=== PATIENT | female | born 1950 | race Caucasian/White ===

== ENCOUNTER → 2024-01-16 11:28 | Outpatient (REF) | payer MEDICARE, OTHER, SELFPAY | LOC: HWRAD 11:28 | PROVIDERS: ATTENDING PHYSICIAN Internal Medicine; FAMILY PHYSICIAN Internal Medicine | DX: M81.0 Age-related osteoporosis without current pathological fracture (principal) | CPT/HCPCS: 77080 ==

== ENCOUNTER 2024-03-31 06:42 | Outpatient (RCR) | payer MEDICARE, OTHER, SELFPAY | END 2024-03-31 23:59 | disposition home or self-care (01) | LOC: RPT 06:42 | PROVIDERS: ATTENDING PHYSICIAN Internal Medicine | DX: C50.919 Malignant neoplasm of unspecified site of unspecified female breast (principal); C79.9 Secondary malignant neoplasm of unspecified site; Z98.890 Other specified postprocedural states; Z73.6 Limitation of activities due to disability; L90.5 Scar conditions and fibrosis of skin; R53.0 Neoplastic (malignant) related fatigue; R26.81 Unsteadiness on feet; R29.3 Abnormal posture | CPT/HCPCS: 97162; 97530 ==

== ENCOUNTER 2024-05-03 15:58 | Outpatient (RCR) | payer MEDICARE, OTHER, SELFPAY | END 2024-05-03 23:59 | disposition home or self-care (01) | LOC: RPT 15:58 | PROVIDERS: ATTENDING PHYSICIAN Internal Medicine | DX: C50.912 Malignant neoplasm of unspecified site of left female breast (principal); Z98.890 Other specified postprocedural states; Z73.6 Limitation of activities due to disability; L90.5 Scar conditions and fibrosis of skin; R53.0 Neoplastic (malignant) related fatigue; R26.81 Unsteadiness on feet; R29.3 Abnormal posture | CPT/HCPCS: 97110; 97140; 97164; 97530 ==

== ENCOUNTER 2024-06-03 12:59 | Outpatient (RCR) | payer MEDICARE, OTHER, SELFPAY | END 2024-06-03 23:59 | disposition home or self-care (01) | LOC: RPT 12:59 | PROVIDERS: ATTENDING PHYSICIAN Internal Medicine | DX: I89.0 Lymphedema, not elsewhere classified (principal); C50.919 Malignant neoplasm of unspecified site of unspecified female breast; Z98.890 Other specified postprocedural states; Z73.6 Limitation of activities due to disability | CPT/HCPCS: 97110; 97112; 97530 ==

== ENCOUNTER 2024-07-01 13:02 | Outpatient (RCR) | payer MEDICARE, OTHER, SELFPAY | END 2024-07-01 23:59 | disposition home or self-care (01) | LOC: RPT 13:02 | PROVIDERS: ATTENDING PHYSICIAN Internal Medicine | DX: C79.9 Secondary malignant neoplasm of unspecified site (principal); C50.919 Malignant neoplasm of unspecified site of unspecified female breast; L90.5 Scar conditions and fibrosis of skin; R53.0 Neoplastic (malignant) related fatigue; R26.81 Unsteadiness on feet; R29.3 Abnormal posture; Z98.890 Other specified postprocedural states; Z91.89 Other specified personal risk factors, not elsewhere classified; Z73.6 Limitation of activities due to disability | CPT/HCPCS: 97110; 97112; 97530 ==

== ENCOUNTER 2024-08-05 13:08 | Outpatient (RCR) | payer MEDICARE, OTHER, SELFPAY | END 2024-08-05 23:59 | disposition home or self-care (01) | LOC: RPT 13:08 | PROVIDERS: ATTENDING PHYSICIAN Internal Medicine | DX: R53.0 Neoplastic (malignant) related fatigue (principal); R26.81 Unsteadiness on feet; L90.5 Scar conditions and fibrosis of skin; R29.3 Abnormal posture; Z73.6 Limitation of activities due to disability; Z91.89 Other specified personal risk factors, not elsewhere classified; I97.2 Postmastectomy lymphedema syndrome; C50.919 Malignant neoplasm of unspecified site of unspecified female breast | CPT/HCPCS: 97110; 97112; 97140; 97530 ==

== ENCOUNTER 2024-08-27 14:26 | Outpatient (RCR) | payer MEDICARE, OTHER, SELFPAY | END 2024-08-27 23:59 | disposition home or self-care (01) | LOC: RPT 14:26 | PROVIDERS: ATTENDING PHYSICIAN Internal Medicine | DX: C50.919 Malignant neoplasm of unspecified site of unspecified female breast (principal); Z73.6 Limitation of activities due to disability; C79.9 Secondary malignant neoplasm of unspecified site; L90.5 Scar conditions and fibrosis of skin; R53.0 Neoplastic (malignant) related fatigue; R26.81 Unsteadiness on feet; R29.3 Abnormal posture; N81.0 Urethrocele; Z91.89 Other specified personal risk factors, not elsewhere classified; M81.0 Age-related osteoporosis without current pathological fracture; Z98.890 Other specified postprocedural states | CPT/HCPCS: 97110; 97140 ==

== ENCOUNTER 2024-09-23 13:02 | Outpatient (RCR) | payer MEDICARE, OTHER, SELFPAY | END 2024-09-23 23:59 | disposition home or self-care (01) | LOC: RPT 13:02 | PROVIDERS: ATTENDING PHYSICIAN Internal Medicine | DX: C50.919 Malignant neoplasm of unspecified site of unspecified female breast (principal); Z73.6 Limitation of activities due to disability; L90.5 Scar conditions and fibrosis of skin; R53.0 Neoplastic (malignant) related fatigue; R26.81 Unsteadiness on feet; Z91.89 Other specified personal risk factors, not elsewhere classified; R29.3 Abnormal posture; N81.0 Urethrocele; C79.9 Secondary malignant neoplasm of unspecified site; Z98.890 Other specified postprocedural states; M81.0 Age-related osteoporosis without current pathological fracture | CPT/HCPCS: 97110; 97112; 97140; 97530 ==

== ENCOUNTER 2024-10-14 15:32 | Outpatient (RCR) | payer MEDICARE, OTHER, SELFPAY | END 2024-10-14 23:59 | disposition home or self-care (01) | LOC: RPT 15:32 | PROVIDERS: ATTENDING PHYSICIAN Internal Medicine | DX: C50.919 Malignant neoplasm of unspecified site of unspecified female breast (principal); Z73.6 Limitation of activities due to disability; L90.5 Scar conditions and fibrosis of skin; R26.81 Unsteadiness on feet; I89.0 Lymphedema, not elsewhere classified; R29.3 Abnormal posture; Z91.89 Other specified personal risk factors, not elsewhere classified; R53.0 Neoplastic (malignant) related fatigue; N81.0 Urethrocele; C79.9 Secondary malignant neoplasm of unspecified site; Z98.890 Other specified postprocedural states; M81.0 Age-related osteoporosis without current pathological fracture | CPT/HCPCS: 97110; 97140; 97530 ==

== ENCOUNTER → 2024-10-20 10:56 | Outpatient (REF) | payer MEDICARE, OTHER, SELFPAY | LOC: HWRAD 10:56 | PROVIDERS: ATTENDING PHYSICIAN Internal Medicine | DX: R06.02 Shortness of breath (principal) | CPT/HCPCS: 71046 ==

== ENCOUNTER 2024-11-25 15:05 | Outpatient (RCR) | payer MEDICARE, OTHER, SELFPAY | END 2024-11-25 23:59 | disposition home or self-care (01) | LOC: RPT 15:05 | PROVIDERS: ATTENDING PHYSICIAN Internal Medicine | DX: C50.919 Malignant neoplasm of unspecified site of unspecified female breast (principal); Z73.6 Limitation of activities due to disability; L90.5 Scar conditions and fibrosis of skin; C79.9 Secondary malignant neoplasm of unspecified site; I89.0 Lymphedema, not elsewhere classified; Z91.89 Other specified personal risk factors, not elsewhere classified; R53.0 Neoplastic (malignant) related fatigue; R26.81 Unsteadiness on feet; R29.3 Abnormal posture; Z98.890 Other specified postprocedural states; N81.0 Urethrocele; M81.0 Age-related osteoporosis without current pathological fracture | CPT/HCPCS: 97110; 97112; 97164; 97530 ==

== ENCOUNTER → 2024-12-02 12:47 | Outpatient (REF) | payer MEDICARE, OTHER, SELFPAY | LOC: RCS 12:47 | PROVIDERS: ATTENDING PHYSICIAN Internal Medicine Cardiovascular Disease; FAMILY PHYSICIAN Internal Medicine | DX: R06.09 Other forms of dyspnea (principal); Z85.3 Personal history of malignant neoplasm of breast; Z92.3 Personal history of irradiation | CPT/HCPCS: 93306; 93356 ==

== ENCOUNTER 2024-12-31 15:04 | Outpatient (RCR) | payer MEDICARE, OTHER, SELFPAY | END 2024-12-31 23:59 | disposition home or self-care (01) | LOC: RPT 15:04 | PROVIDERS: ATTENDING PHYSICIAN Nurse Practitioner; FAMILY PHYSICIAN Internal Medicine | DX: D05.11 Intraductal carcinoma in situ of right breast (principal); C50.919 Malignant neoplasm of unspecified site of unspecified female breast (principal); Z73.6 Limitation of activities due to disability; C50.912 Malignant neoplasm of unspecified site of left female breast; L90.5 Scar conditions and fibrosis of skin; C79.9 Secondary malignant neoplasm of unspecified site; I89.0 Lymphedema, not elsewhere classified; Z91.89 Other specified personal risk factors, not elsewhere classified; R53.0 Neoplastic (malignant) related fatigue; R29.3 Abnormal posture; R26.81 Unsteadiness on feet; N81.0 Urethrocele; M81.0 Age-related osteoporosis without current pathological fracture; Z98.890 Other specified postprocedural states | CPT/HCPCS: 97110; 97112; 97530 ==

== ENCOUNTER 2025-01-28 14:00 | Outpatient (RCR) | payer MEDICARE, OTHER, SELFPAY | END 2025-01-28 23:59 | disposition home or self-care (01) | LOC: RPT 14:00 | PROVIDERS: ATTENDING PHYSICIAN Nurse Practitioner; FAMILY PHYSICIAN Internal Medicine | DX: C50.919 Malignant neoplasm of unspecified site of unspecified female breast (principal); L90.5 Scar conditions and fibrosis of skin; C79.9 Secondary malignant neoplasm of unspecified site; I89.0 Lymphedema, not elsewhere classified; Z91.89 Other specified personal risk factors, not elsewhere classified; R53.0 Neoplastic (malignant) related fatigue; R39.15 Urgency of urination; R35.0 Frequency of micturition; Z73.6 Limitation of activities due to disability; R26.81 Unsteadiness on feet; M62.89 Other specified disorders of muscle; R29.3 Abnormal posture; N81.0 Urethrocele; M81.0 Age-related osteoporosis without current pathological fracture; Z98.890 Other specified postprocedural states; B02.9 Zoster without complications | CPT/HCPCS: 97110; 97112; 97140; 97164; 97530 ==

== ENCOUNTER 2025-03-04 15:04 | Outpatient (RCR) | payer MEDICARE, OTHER, SELFPAY | END 2025-03-04 23:59 | disposition home or self-care (01) | LOC: RPT 15:04 | PROVIDERS: ATTENDING PHYSICIAN Nurse Practitioner; FAMILY PHYSICIAN Internal Medicine | DX: C50.919 Malignant neoplasm of unspecified site of unspecified female breast (principal); L90.5 Scar conditions and fibrosis of skin; C79.9 Secondary malignant neoplasm of unspecified site; I89.0 Lymphedema, not elsewhere classified; Z91.89 Other specified personal risk factors, not elsewhere classified; R53.0 Neoplastic (malignant) related fatigue; R39.15 Urgency of urination; R35.0 Frequency of micturition; Z73.6 Limitation of activities due to disability; R26.81 Unsteadiness on feet; M62.89 Other specified disorders of muscle; R29.3 Abnormal posture; N81.0 Urethrocele; M81.0 Age-related osteoporosis without current pathological fracture; B02.9 Zoster without complications; Z98.890 Other specified postprocedural states | CPT/HCPCS: 97110; 97112 ==

== ENCOUNTER 2025-04-01 14:59 | Outpatient (RCR) | payer MEDICARE, OTHER, SELFPAY | END 2025-04-01 23:59 | disposition home or self-care (01) | LOC: RPT 14:59 | PROVIDERS: ATTENDING PHYSICIAN Nurse Practitioner; FAMILY PHYSICIAN Internal Medicine | DX: C50.919 Malignant neoplasm of unspecified site of unspecified female breast (principal); L90.5 Scar conditions and fibrosis of skin; C79.9 Secondary malignant neoplasm of unspecified site; I89.0 Lymphedema, not elsewhere classified; Z91.89 Other specified personal risk factors, not elsewhere classified; R53.0 Neoplastic (malignant) related fatigue; R39.15 Urgency of urination; R35.0 Frequency of micturition; Z73.6 Limitation of activities due to disability; R26.81 Unsteadiness on feet; M62.89 Other specified disorders of muscle; R29.3 Abnormal posture; N81.0 Urethrocele; M81.0 Age-related osteoporosis without current pathological fracture; B02.9 Zoster without complications; Z98.890 Other specified postprocedural states | CPT/HCPCS: 97110 ==

== ENCOUNTER 2025-04-29 14:58 | Outpatient (RCR) | payer MEDICARE, OTHER, SELFPAY | END 2025-04-29 23:59 | disposition home or self-care (01) | LOC: RPT 14:58 | PROVIDERS: ATTENDING PHYSICIAN Nurse Practitioner; FAMILY PHYSICIAN Internal Medicine | DX: C50.919 Malignant neoplasm of unspecified site of unspecified female breast (principal); D05.11 Intraductal carcinoma in situ of right breast (principal); L90.5 Scar conditions and fibrosis of skin; C79.9 Secondary malignant neoplasm of unspecified site; I89.0 Lymphedema, not elsewhere classified; Z91.89 Other specified personal risk factors, not elsewhere classified; R53.0 Neoplastic (malignant) related fatigue; R39.15 Urgency of urination; R35.0 Frequency of micturition; Z73.6 Limitation of activities due to disability; R26.81 Unsteadiness on feet; M62.89 Other specified disorders of muscle; R29.3 Abnormal posture; N81.0 Urethrocele; M81.0 Age-related osteoporosis without current pathological fracture; B02.9 Zoster without complications; Z98.890 Other specified postprocedural states | CPT/HCPCS: 97110; 97112; 97140; 97530 ==

== ENCOUNTER 2025-05-27 15:07 | Outpatient (RCR) | payer MEDICARE, OTHER, SELFPAY | END 2025-05-27 23:59 | disposition home or self-care (01) | LOC: RPT 15:07 | PROVIDERS: ATTENDING PHYSICIAN Nurse Practitioner; FAMILY PHYSICIAN Internal Medicine | DX: D05.11 Intraductal carcinoma in situ of right breast (principal); L90.5 Scar conditions and fibrosis of skin; I89.0 Lymphedema, not elsewhere classified; C79.9 Secondary malignant neoplasm of unspecified site; Z91.89 Other specified personal risk factors, not elsewhere classified; R53.0 Neoplastic (malignant) related fatigue; R39.15 Urgency of urination; R35.0 Frequency of micturition; Z73.6 Limitation of activities due to disability; R26.81 Unsteadiness on feet; M62.89 Other specified disorders of muscle; R29.3 Abnormal posture; N81.0 Urethrocele; M81.0 Age-related osteoporosis without current pathological fracture; B02.9 Zoster without complications; Z98.890 Other specified postprocedural states | CPT/HCPCS: 97110; 97112; 97140 ==

== ENCOUNTER → 2025-06-09 12:50 | Outpatient (REF) | payer MEDICARE, OTHER, SELFPAY | LOC: WDC 12:50 | PROVIDERS: ATTENDING PHYSICIAN Radiology Radiation Oncology; FAMILY PHYSICIAN Internal Medicine | DX: R92.2 Inconclusive mammogram (principal); Z85.3 Personal history of malignant neoplasm of breast | CPT/HCPCS: 76641 ==

== ENCOUNTER 2025-06-24 15:01 | Outpatient (RCR) | payer MEDICARE, OTHER, SELFPAY | END 2025-06-24 23:59 | disposition home or self-care (01) | LOC: RPT 15:01 | PROVIDERS: ATTENDING PHYSICIAN Nurse Practitioner; FAMILY PHYSICIAN Internal Medicine | DX: D05.11 Intraductal carcinoma in situ of right breast (principal); L90.5 Scar conditions and fibrosis of skin; I89.0 Lymphedema, not elsewhere classified; C79.9 Secondary malignant neoplasm of unspecified site; Z91.89 Other specified personal risk factors, not elsewhere classified; R53.0 Neoplastic (malignant) related fatigue; R39.15 Urgency of urination; R35.0 Frequency of micturition; Z73.6 Limitation of activities due to disability; R26.81 Unsteadiness on feet; M62.89 Other specified disorders of muscle; R29.3 Abnormal posture; N81.0 Urethrocele; M81.0 Age-related osteoporosis without current pathological fracture; B02.9 Zoster without complications; Z98.890 Other specified postprocedural states | CPT/HCPCS: 97014; 97110; 97112; 97140; 97530 ==

== ENCOUNTER 2025-07-21 14:21 | Outpatient (RCR) | payer MEDICARE, OTHER, SELFPAY | END 2025-07-21 23:59 | disposition home or self-care (01) | LOC: RPT 14:21 | PROVIDERS: ATTENDING PHYSICIAN Nurse Practitioner; FAMILY PHYSICIAN Internal Medicine | DX: D05.11 Intraductal carcinoma in situ of right breast (principal); L90.5 Scar conditions and fibrosis of skin; I89.0 Lymphedema, not elsewhere classified; C79.9 Secondary malignant neoplasm of unspecified site; Z91.89 Other specified personal risk factors, not elsewhere classified; R53.0 Neoplastic (malignant) related fatigue; R39.15 Urgency of urination; R35.0 Frequency of micturition; Z73.6 Limitation of activities due to disability; R26.81 Unsteadiness on feet; M62.89 Other specified disorders of muscle; R29.3 Abnormal posture; N81.0 Urethrocele; M81.0 Age-related osteoporosis without current pathological fracture; B02.9 Zoster without complications; Z98.890 Other specified postprocedural states | CPT/HCPCS: 97110; 97112; 97140; 97530 ==